=== PATIENT | male | born 1980 | race Caucasian/White ===

== ENCOUNTER 2017-06-17 12:35 | Emergency (ER) | payer MEDICAID ==
[2017-06-17] MEDS ORDERED: KETOROLAC TROMETHAMINE 60 MG/2 ML VIAL IM ONE ×2 (13:25→13:37)
[2017-06-17] MEDS ORDERED: KETOROLAC TROMETHAMINE 30 MG/ML VIAL ONE (13:33)
--- NOTE | 2017-06-17 13:35 | ERNOTE ---
Lower Extremity HPI - General Lower Extremities Pain: foot: right Time Seen by Provider: 06/17/17 13:17 Source: patient Exam Limitations: no limitations - Immun/Allergies/Home Medications Immunizations: IMMUNIZATION HX Immunizations Up to Date Yes History of Influenza Vaccine No Home Medications: HOME MEDICATIONS Cephalexin [Keflex] 750 mg PO DAILY 06/17/17 [Last Taken Unknown] Ciprofloxacin HCl [Cipro] 500 mg PO BID #20 tab 06/17/17 [Last Taken Unknown] Sulfamethoxazole/Trimethoprim [Bactrim Ds] 1 tab PO BID #20 tab 06/17/17 [Last Taken Unknown] - History of Present Illness Narrative: Patient stepped on a nail yesterday am that was stuck on a board. He thinks that the nail came out as a whole. He was seen in [facility] given toradol and a dose of keflex. He took a second dose of keflex around 18:00 and shortly after got nauseated, short of breath and had diarrhea for several hours. Symptoms have resolved now but the pain in his foot has increased and he has redness and swelling on the dorsum of his foot as well Date (Duration): 06/16/17 Time (Timing): 06:00 Review of Systems - Review of Systems Constitutional: Absent: recent illness, fever ENT: Absent: sore throat, throat swelling Respiratory: Present: See HPI. Absent: shortness of breath Cardiology: Present: See HPI. Absent: chest pain Gastrointestinal/Abdominal: Present: See HPI Musculoskeletal: Present: no symptoms reported Skin: Present: See HPI - Patient's Past Medical History Patient History - Medical: No pertinent hx Patient History - Cardiac/Respiratory: No pertinent hx Patient History - Cancer: No Hx of Cancer Patient History - Surgical Procedures: No surgical history Patient History - Other: None - Social History Living Situations: home Psych History: No pertinent hx Have you smoked in the past 12 months: No Alcohol Use: none Drug Use: none - Immunizations Immunizations Up to Date: Yes History of Influenza Vaccine: No Physical Exam - Physical Exam General Appearance: Present: wd/wn, alert, no apparent distress Respiratory: Present: no respiratory distress, normal breath sounds, lungs clear Cardiovascular/Chest: Present: regular rate, rhythm, no murmur Extremity Exam: Present: other - right foot: plantar puncture wound just proximal to third digit, tender, no drainage, mild erythema on distal dorsum of foot Neurological Exam: Present: alert, oriented, normal mood/affect, no motor/ sensory deficits Skin Exam: Present: normal color, warm/dry ED Progress - Vital Signs Patient's Vital Signs:: I have reviewed the patient's vital signs. Vital Signs: Vital Signs 06/17/17 06/17/17 12:45 13:05 Temperature 37.3 C 37 C Pulse Rate 72 81 Respiratory 16 Rate Blood Pressure 147/78 128/81 O2 Sat by Pulse 97 99 Oximetry - X-Ray X-Ray #1 X-Ray: foot - soft tissure swelling at base of the thirs digit Interpretation: Reviewed by me - Progress/Reassessment Chief Complaint: Foot Injury/Pain Progress Note-Subjective: 06/17/17 14:38 discussed results Departure Clinical Impression: Infected puncture wound of plantar aspect of foot Qualifiers: Encounter type: initial encounter Laterality: right Qualified Code(s): S91.331A - Puncture wound without foreign body, right foot, initial encounter - Departure Disposition: Home self-care Condition: Good Instructions: Puncture Wound, [id number] Additional Instructions: take ibuprofen (200mg) three every six hours as needed for pain call your doctor for follow up Referrals: Saturnino Rodrigues DO [Pharmacy] - Prescriptions: Ciprofloxacin HCl [Cipro] 500 mg PO BID #20 tab Sulfamethoxazole/Trimethoprim [Bactrim Ds] 1 tab PO BID #20 tab
--- OUTSIDE RECORDS SUMMARY | 2017-06-17 13:47 | XMS REPORT | Continuity of Care Document ---
:1980 Author Organization [employer] [place] [address] Care Team Providers Name Role Phone Rafy Keith Tyra Primary Care Provider [phone] Source Comments This disclosure is being made pursuant to the [employer] program and maynot contain all information available regarding this patient.[employer] Active Allergies and Adverse Reactions Not on File Current Medications Be aware that medications may not be up to date as of this document. Alwaysverify current medications with the patient. Not on file Active Problems Not on file Most Recent Encounters Date Type Specialty Providers Description 03/25/2017 Office Visit Family Medicine Joycelyn Alcala, Physical exam , [employer] pre-employment (Primary Dx) Social History Tobacco Use Types Packs/Day Years Used Date Never Assessed Plan of Care Health Maintenance Due Date Last Done Comments Tetanus/Pertussis (1 - Tdap) 1998 Influenza Immunization (#1) 2016 Results from Last 3 Months Not on file
[2017-06-17] MEDS ORDERED: CIPROFLOXACIN HCL 250 MG TABLET PO ONE (14:38)
[2017-06-17] MEDS ORDERED: SULFAMETHOXAZOLE/TRIMETHOPRIM 1 TAB TABLET PO ONE (14:39)
[2017-06-17] MEDS ORDERED: CIPROFLOXACIN HCL 250 MG TABLET ONE (14:51)
[2017-06-17] MEDS ORDERED: SULFAMETHOXAZOLE/TRIMETHOPRIM 1 TAB TABLET ONE (14:52)
[2017-06-17 14:59] VITALS: BP 138/70
== END 2017-06-17 15:08 | disposition home or self-care (01) ==
LOC: ER 12:35
DX: S91.331D Puncture wound without foreign body, right foot, subsequent encounter (principal); W45.0XXD Nail entering through skin, subsequent encounter